=== PATIENT | male | born 1970 | race Caucasian/White ===

== ENCOUNTER 2016-11-03 08:51 | Observation (INO) | payer OTHER, BC ==
[2016-11-03 09:06] LABS: EOSINOPHIL (%) 2.3 % (0-5); EOSINOPHIL COUNT 0.1 K/uL (0-0.3); HEMATOCRIT 42.8 % (38.0-50.0); IMMATURE GRANULOCYTE (%) 0.5 % (0.0-0.7); INSTRUMENT ABS NEUTROPHIL CT 1.7 K/uL; LYMPHOCYTE COUNT 1.5 K/uL (1.0-2.8); MCH 31.8 PG (29.0-34.0); MCHC 35.3 G/DL (30.0-36.0); MCV 90.1 FL (86-99); MEAN PLAT.VOLUME 9.3 uM^3 (9.0-12.4); MONOCYTE COUNT 0.5 K/uL (0-0.8); NEUTROPHIL (%) 44.8 % (45-76); NEUTROPHIL COUNT 1.7 K/uL (1.8-6.4); PLATELET COUNT 180 K/uL (156-360); RBC DIS.WIDTH-CV 11.8 % (11.8-14.6); RED BLOOD COUNT 4.75 M/uL (4.00-5.50); WHITE BLOOD COUNT 3.9 K/uL (4.1-10.2)
[2016-11-03 10:55] LABS: AMYLASE 36 IU/L (1-118); CHLORIDE 104 mEq/L (99-109); POTASSIUM 3.3 mEq/L (3.7-5.4); SODIUM 137 mEq/L (136-147)
[2016-11-03 10:57] LABS: GLUCOSE 114 mg/dL (70-99)
[2016-11-03 10:58] LABS: ANION GAP 13 MEQ/L (2-14)
[2016-11-03 11:00] LABS: SERUM ETHYL ALCOHOL < 10 mg/dL
[2016-11-03 11:01] LABS: GFR ESTIMATE (CALCULATED) > 59 mL/min/
[2016-11-03 11:02] LABS: UREA NITROGEN (BUN) 17 mg/dL (9-23)
[2016-11-03 11:04] LABS: LIPASE 18 U/L (1.0-51.0)
[2016-11-03 11:10] LABS: TROP-I INTERPRETATION NEGATIVE; TROPONIN-I < 0.01 ng/mL (0.0-0.30)
[2016-11-03 11:48] LABS: BILIRUBIN NEGATIVE; BLOOD NEGATIVE; COLOR YELLOW ((YELLOW)); GLUCOSE (STRIP) NEGATIVE; KETONES 5; LEUKOCYTES NEGATIVE; NITRITE NEGATIVE; PROTEIN (STRIP) NEGATIVE; SPECIFIC GRAVITY 1.023 (1.000-1.030); UROBILINOGEN 0.2 MG/DL (0.2-1.0)
[2016-11-03 11:49] LABS: ADD MIUA? NO; UCUL ADDED? NO
[2016-11-03 12:02] LABS: AMPHETAMINE NEGATIVE (500 ng/mL); BARBITURATES NEGATIVE (200 ng/mL); BENZODIAZEPINES NEGATIVE (150 ng/mL); COCAINE NEGATIVE (150 ng/mL); INTERNAL CONTROLS VALID? YES; METHADONE NEGATIVE (200 ng/mL); METHAMPHETAMINE NEGATIVE (500 ng/mL); OPIATES (MORPHINE) NEGATIVE (100 ng/mL); OXYCODONE NEGATIVE (100 ng/mL); PHENCYCLIDINE NEGATIVE (25 ng/mL); PROPOXYPHENE NEGATIVE (300 ng/mL); THC CANNABINOIDS NEGATIVE (50 ng/mL); TRICYCLIC ANTIDEPRESSANTS NEGATIVE (300 ng/mL)
[2016-11-03] MEDS ORDERED: FISH OIL 1,0001 EAC7 PO (12:43)
[2016-11-03] MEDS ORDERED: MULTI VITAMIN1 EACH PO (12:43)
[2016-11-03] MEDS ORDERED: CLA 1,000 MG1000 MG PO (12:44)
[2016-11-03 17:00] LABS: TROP-I INTERPRETATION NEGATIVE; TROPONIN-I < 0.01 ng/mL (0.0-0.30)
[2016-11-03 23:09] LABS: TROP-I INTERPRETATION NEGATIVE; TROPONIN-I < 0.01 ng/mL (0.0-0.30)
[2016-11-04 07:21] LABS: ANION GAP 7 MEQ/L (2-14); CHLORIDE 107 MEQ/L (99-109); GFR ESTIMATE (CALCULATED) > 59 mL/min/; GLUCOSE 132 mg/dL (70-99); POTASSIUM 3.9 MEQ/L (3.7-5.4); SAMPLE HEMOLYSIS CHECK 0; SAMPLE ICTERIC CHECK 0; SAMPLE LIPEMIA CHECK 0; SODIUM 138 MEQ/L (136-147); UREA NITROGEN (BUN) 11 mg/dL (9-23)
[2016-11-04] MEDS ORDERED: BACTROBAN OINTM22 GM TP (15:11)
== END 2016-11-04 15:59 | disposition home or self-care (01) ==
LOC: TRA 08:51 → 4EAST 15:02 → EDOF 15:02 → 4EAST 11-04 12:34
PROVIDERS: Emergency Medicine; Internal Medicine
PROC: 3E0234Z Introduction of Serum, Toxoid and Vaccine into Muscle, Percutaneous Approach (ICD-10-PCS; principal; 2016-11-03)
DX: R55 Syncope and collapse (principal); R00.1 Bradycardia, unspecified; R91.8 Other nonspecific abnormal finding of lung field; E87.6 Hypokalemia; D72.819 Decreased white blood cell count, unspecified; S09.90XA Unspecified injury of head, initial encounter; S01.81XA Laceration without foreign body of other part of head, initial encounter; I49.9 Cardiac arrhythmia, unspecified; S00.03XA Contusion of scalp, initial encounter; S02.2XXA Fracture of nasal bones, initial encounter for closed fracture; Z80.1 Family history of malignant neoplasm of trachea, bronchus and lung; W31.89XA Contact with other specified machinery, initial encounter; Y93.89 Activity, other specified; Y92.69 Other specified industrial and construction area as the place of occurrence of the external cause; Y99.0 Civilian activity done for income or pay; Z23 Encounter for immunization
CPT/HCPCS: 70450; 70486; 71260; 72125; 72129; 72132; 74177; 78582; 80048; 81003; 82150; 83690; 84484; 85025; 86900; 86901; 93005; 93306; 93880; 99281; 99285; A9540; A9567; G0378; G0480; J0461; J2405; J3010; J7030